=== PATIENT | female | born 2000 | race Two or more races ===

== ENCOUNTER 2024-05-20 10:22 | Inpatient (IN) | payer MEDICAID, SELFPAY ==
[2024-05-20] VITALS (13 sets, daily range): BP systolic 106–130; BP diastolic 59–83; PULSE 63–84; RESP 12–20; TEMP 36.6–37.1; O2SAT 98–100; BMI 37.8
--- NOTE | 2024-05-20 10:51 | ESHP_ITS ---
Documentation for date of: 05/20/24 OB Labor/Induct. HPI History of Present Illness History of present illness: 23-year-old at 39 weeks and 0 days gestation presents for scheduled repeat low transverse section. Estimated due date is May 27, 2024. Patient has a history of one previous section performed in [place] in November 2021. Current has been uncomplicated. records were reviewed: - Group B strep was negative on April 29, 2024 - 2-hour glucose tolerance test was abnormal on all three parameters on March 22, 2024 - NIPT was negative for trisomies with female gender on December 25, 2023 - Toxicology screening was negative on December 14, 2023 - Hemoglobin A1c was 5.4 on December 15, 2023 - Initial panel (November 30, 2023): - Blood group O-positive with antibody screen negative - HIV-negative - Gonorrhea and chlamydia-negative - Hemoglobin of 13.3 - RPR-nonreactive - Rubella-nonimmune status MFM ultrasound on April 22, 2024 showed normal anatomy survey at 33 weeks and 5 days with a mild mid-muscular VSD measuring 2.8 mm in size. Recommendation for echocardiography and follow-up with pediatric neonatology was made. Review of Systems Review of Systems Systems Reviewed: All systems reviewed, normal except as documented OB Exam Constitutional Constitutional: no acute distress Routine HEENT Exam Head: Present normocephalic and atraumatic Eye: Present EOMI and PERRL ENT: Present mucous membranes moist Routine Neck Exam Neck: Present supple and trachea midline Routine Cardiovascular Exam Cardiovascular: Present RRR Routine Abdominal Exam Abdominal: Present soft and normoactive bowel sounds Detailed Labor and Delivery Exam Baseline heart rate: 145 monitor accelerations: 15x15 monitor decelerations: None Routine Extremities Exam Extremities: Present full ROM Routine Skin Exam Skin: Present intact, dry and warm Routine Neurological Exam Neurological: Present alert, oriented X3 and CN II-XII intact Routine Psychiatric Exam Psychiatric: Present normal affect and normal thought process OB Assessment & Plan Assessment and Plan (1) Previous delivery affecting : Status: Acute Assessment and plan: Plan: - Admit for scheduled repeat low transverse section - Implement standard labor admission orders - Obtain informed consent for procedure Gestational diabetes mellitus: - Abnormal 2-hour glucose tolerance test (03/22/2024) - Hemoglobin A1c 5.4% (12/15/2023) - Continue monitoring blood glucose levels perioperatively - Manage according to standard gestational diabetes protocols during section ventricular septal defect (VSD): - MFM ultrasound (04/22/2024) showed mild mid-muscular VSD (2.8 mm) - Notify neonatology team of VSD - Schedule echocardiography - Arrange follow-up with pediatric neonatology (2) Gestational diabetes: Status: Acute
[2024-05-20 11:16] LABS: Basophils % (Auto) 0 % (0-2.5); Eosinophils # (Auto) 0.1 Thou/mm3 (0.0-0.5); Eosinophils % (Auto) 1 % (0-10); Hematocrit 31.4 % (36.0-46.0); Hemoglobin 9.8 g/dL (12.0-16.0); Immature Granulocytes % (Auto) 0 % (0-0); Immature Granulocytes Auto 0.05 Thou/mm3 (0.00-0.00); Lymphocytes # (Auto) 2.7 Thou/mm3 (1.0-4.8); Lymphocytes % (Auto) 24 % (10-50); Mean Corpuscular HGB Conc 31.2 g/dl (31.0-37.0); Mean Corpuscular Hemoglobin 22.8 pg (25.0-35.0); Mean Corpuscular Volume 73 fL (80-100); Monocytes # (Auto) 0.5 Thou/mm3 (0.0-0.8); Monocytes % (Auto) 4 % (0-12); Neutrophils # (Auto) 7.9 Thou/mm3 (1.8-7.7); Neutrophils % (Auto) 70 % (37-80); Nucleated Red Blood Cell # 0.02 Thou/mm3 (0.00-0.00); Nucleated Red Blood Cell % 0 /100 WBC (0); Platelet Count 125 Thou/mm3 (140-440); White Blood Count 11.3 Thou/mm3 (3.6-11.0)
[2024-05-20 11:49] LABS: Syphilis Nonreactive (Nonreactive)
[2024-05-20] MEDS: CITRIC ACID/SODIUM CITR 15 ML UDC (BICITRA) 30 ML PO (12:22)
[2024-05-20] MEDS: ceFAZolin/D5W 2 GM IV 2 GM/100 ML BAG IV (12:23)
[2024-05-20] MEDS: FAMOTIDINE INJ 10 MG/ML VIAL 2 ML 20 MG IV (12:23)
[2024-05-20] MEDS: RINGERS LACTATED 1000 ML 1,000 ML 100 ML IV (12:26)
[2024-05-20 13:25] LABS: Amphetamine/Metham Scrn,Ur OB Negative (Negative); Benzoylecgonine Screen, Ur OB Negative (Negative); Opiate Screen,Urine OB Negative (Negative); THC Screen,Urine OB Negative (Negative)
--- NOTE | 2024-05-20 13:45 | ESOP_ITS ---
Operative Note - APPLIQUER Procedure Date of procedure: 05/20/24 Procedure Performed: Repeat section with vertical skin and low transverse uterine incision Indication: 23-year-old G2, P1 at 39 weeks with previous in [place] Gestational diabetes with unspecified control Anesthesia type: Spinal Procedure description: Informed consent was obtained and the patient was brought to the operating room. Identity was verified with double identifiers. Under spinal anesthesia, the patient was positioned supine. The abdomen and perineum were prepped in standard sterile fashion, and a Posey catheter was placed for continuous drainage. After applying sterile drapes and confirming anesthesia adequacy, a vertical skin incision was made along the patient?s previous scar. The incision was carried through the subcutaneous tissue to expose the rectus fascia. The fascia was incised in the midline, and the rectus muscles were gently to enter the peritoneum bluntly. The peritoneal opening was then extended and an Carlos O-ring retractor was placed to optimize visualization. A low transverse Nancy Donaldson uterine incision was made in the lower uterine seg ment, carefully avoiding the bladder. Uterine entry was achieved bluntly, and the opening was extended to allow rupture of the amniotic membranes and release of clear amniotic fluid. The fetus, in vertex position, was delivered after gentle elevation of the head and release of a single nuchal cord loop, with the remainder of the body delivered via gentle fundal pressure. The umbilical cord was doubly clamped, divided, and the infant transferred to the team, with cord gas samples obtained. The placenta was delivered with gentle traction, and the uterine cavity was thoroughly cleaned of blood, debris, and membranes. The hysterotomy was closed in two layers using 1 Monocryl suture. The first layer approximated the uterine muscle in a running locked fashion, while the second layer imbricated the myometrium and serosa. Hemostasis at the hysterotomy site was confirmed. Following removal of the Carlos retractor, the peritoneal edges and rectus muscles were reapproximated. The rectus fascia was closed in a running fashion with 0 Vicryl suture. After copious irrigation of the subcutaneous tissue with warm normal saline and cauterization of bleeding points, the subcutaneous layer was closed with 3-0 Vicryl. The skin was then closed with surgical ibrahima. The patient was subsequently undraped, her abdomen and back were thoroughly cleaned, and she was transferred to the recovery room in stable and awake condition. The procedure was well tolerated without complications, and all instrument, sponge, and lap counts were correct. Estimated blood loss (ml): 650 Complications: none Surgical staff Operation Date: 05/20/24 12:45 Case Staff LITHOGRAPHIC ETCHER: Tonie Baldwin RN First Assistant: Dexter Tavarez Diagnosis Discharge Diagnosis (1) Previous delivery affecting : Status: Acute (2) Gestational diabetes: Status: Acute Problem List Completed Was Problem List Reviewed/Reconciled?: Yes
--- NOTE | 2024-05-20 13:45 | PD.LDDELS ---
Data ([facility]) Data Hx Section: No : 3 Para: 1 Term: 1 : 0 : 1 Delivery Data ([facility]) Labor Data ROM Date: 05/20/24 ROM Time: 13:17 Rupture Type: AROM Amniotic Fluid: Clear Delivery Data Labor Onset Stage 1 Date: 05/20/24 Labor Onset Stage 1 Time: 13:18 Labor Onset Stage 2 Date: 05/20/24 Labor Onset Stage 2 Time: 13:18 Delivery Date: 05/20/24 Delivery Time: 13:18 Placenta Delivery Date: 05/20/24 Placenta Delivery Time: 13:19 Delivered by: Kevin Xavier Delivery nurse: Alise Flores Other staff at delivery: Nursery Nurse Other staff at delivery: Nursery Nurse Other staff at delivery: [employer] Switchboard Operator Other staff at delivery: Raza Other staff at delivery: Bree Hernández Other staff at delivery: Natalie Leavitt Other staff at delivery: CHRISTI Other staff at delivery: JOVITA Delivery Method Delivery: Delivery Type: Repeat Anesthesia Type Primary Anesthesia: Spinal Umbilical Cord Umbilical Vessels: 3 Data ([facility]) Data Gender: Female Infant Weight Grams: 3260 1 Minute Total: 8 5 Minute Total: 10
--- NOTE | 2024-05-20 14:40 | PC.NURSE ---
UPDATE GIVEN TO DR. GARIBAY ON PATIENT STATUS DURING PACU RECOVERY AFTER . PT'S BLEEDING NOTED WITH FUNDAL MASSAGES SLOW TRICKLE. ORDERS RECEIVED TO GIVEN TXA IV X1 AND METHERGINE IM X1. PER M.D. UPDATE IN 30 MINUTES AFTER GIVING MEDICATION.
[2024-05-20] MEDS: METHYLERGONOVINE INJ 0.2 MG/ML VIAL IM (14:47)
[2024-05-20] MEDS: TRANEXAMIC ACID 1,000 MG IVPB 1,000 MG/100 ML BAG 200 MG IV (15:15)
[2024-05-20] MEDS: OXYTOCIN in NS 20 units 20 UNIT/1,000 ML BAG 125 UNIT IV (15:46)
[2024-05-20] MEDS: ACETAMINOPHEN IVPB 1,000 MG/100 ML VIAL 250 MG IV (15:51)
--- NOTE | 2024-05-20 16:15 | PC.NURSE ---
UPDATE GIVEN TO DR. GARIBAY, PT BLEEDING STOPPED AFTER GIVING METHERGINE AND TXA. NO TRICKLE NOTED.
[2024-05-20 17:26] LABS: Band Neutrophils (Manual) 4 % (0-6); Eosinophils (Manual) 1 % (0-4); Lymphocytes (Manual) 26 % (20-44); Metamyelocytes (Manual) 1 % (0-0); Monocytes (Manual) 3 % (2-9); Myelocytes (Manual) 1 % (0-0); Neutrophils (Manual) 64 % (50-70)
[2024-05-21] VITALS: BP 113/71; PULSE 70; RESP 18; TEMP 37.1; O2SAT 98
[2024-05-21] MEDS: OXYTOCIN in NS 20 units 20 UNIT/1,000 ML BAG 125 UNIT IV (01:08)
[2024-05-21] MEDS: ACETAMINOPHEN IVPB 1,000 MG/100 ML VIAL 250 MG IV (01:10)
[2024-05-21 04:00] VITALS: BP 115/74; PULSE 69; RESP 18; TEMP 36.9; O2SAT 100
[2024-05-21] MEDS: KETOROLAC INJ 30 MG/ML VIAL IVP (04:29)
[2024-05-21] MEDS: DiphenhydrAMINE INJ 50 MG/ML VIAL 25 MG IVP (04:30)
[2024-05-21 06:09] LABS: Basophils % (Auto) 0 % (0-2.5); Eosinophils % (Auto) 0 % (0-10); Hematocrit 27.6 % (36.0-46.0); Immature Granulocytes % (Auto) 0 % (0-0); Immature Granulocytes Auto 0.05 Thou/mm3 (0.00-0.00); Lymphocytes # (Auto) 2.9 Thou/mm3 (1.0-4.8); Lymphocytes % (Auto) 19 % (10-50); Mean Corpuscular HGB Conc 31.9 g/dl (31.0-37.0); Mean Corpuscular Hemoglobin 22.9 pg (25.0-35.0); Mean Corpuscular Volume 72 fL (80-100); Monocytes % (Auto) 7 % (0-12); Neutrophils # (Auto) 11.1 Thou/mm3 (1.8-7.7); Neutrophils % (Auto) 74 % (37-80); Nucleated Red Blood Cell % 0 /100 WBC (0); Platelet Count 82 Thou/mm3 (140-440); RDW Standard Deviation 40.6 fL (36.4-46.3); Red Blood Count 3.85 Miln/mm3 (4.00-5.20); White Blood Count 15.1 Thou/mm3 (3.6-11.0)
[2024-05-21 06:11] LABS: Hemoglobin 8.8 g/dL (12.0-16.0)
[2024-05-21 08:00] VITALS: BP 109/61; PULSE 79; RESP 17; TEMP 36.7; O2SAT 98
--- NOTE | 2024-05-21 08:39 | ESPR_ITS ---
Subjective Subjective Interval history: 23-year-old s/p repeat low-transverse , postop day 1 has been doing well. Denies any headache, blurred vision, chest pain, shortness of breath. Has been tolerating diet without nausea vomiting. Denies any fever or vaginal bleeding Exam Vital Signs Temp Pulse Resp BP Pulse Ox O2 Del Method 98.5 F 69 18 115/74 100 Room Air 05/21/24 04:00 05/21/24 04:00 05/21/24 04:00 05/21/24 04:00 05/21/24 04:00 05/21/24 04:00 Constitutional Constitutional: no acute distress Routine HEENT Exam Head: Present normocephalic and atraumatic Eye: Present EOMI and PERRL ENT: Present mucous membranes moist Routine Neck Exam Neck: Present supple and trachea midline Routine Respiratory Exam Respiratory: Present chest non-tender, lungs clear, normal breath sounds and no resp distress Routine Cardiovascular Exam Cardiovascular: Present RRR Routine Abdominal Exam Abdominal: Present soft and normoactive bowel sounds Routine Extremities Exam Extremities: Present full ROM Routine Skin Exam Skin: Present intact, dry and warm Routine Neurological Exam Neurological: Present alert, oriented X3 and CN II-XII intact Routine Psychiatric Exam Psychiatric: Present normal affect and normal thought process Objective Labs 05/21/24 05:55 Labs: Laboratory Results - last 24 hr 05/20/24 05/20/24 05/21/24 10:55 12:05 05:55 WBC 11.3 H 15.1 H RBC 4.30 3.85 L Hgb 9.8 L 8.8 L Hct 31.4 L 27.6 L MCV 73 L 72 L MCH 22.8 L 22.9 L MCHC 31.2 31.9 RDW Std Deviation 42.0 40.6 Plt Count 125 L 82 L D Neut % (Auto) 70 74 Lymph % (Auto) 24 19 Ferry % (Auto) 4 7 Eos % (Auto) 1 0 Baso % (Auto) 0 0 Neut # (Auto) 7.9 H 11.1 H Lymph # (Auto) 2.7 2.9 Ferry # (Auto) 0.5 1.0 H Eos # (Auto) 0.1 0.0 Baso # (Auto) 0.0 0.0 Immature Gran # (Auto) 0.05 H 0.05 H Absolute Nucleated RBC 0.02 H 0.00 Immature Gran % 0 0 Neutrophils % (Manual) 64 Monocytes % (Manual) 3 Eosinophils % (Manual) 1 Metamyelocytes % 1 H Myelocytes % 1 H Nucleated RBC % 0 0 Band Neutrophils 4 Lymphocytes (Manual) 26 Urine Opiates Screen Negative U Amphetamin/Meth Scrn Negative U Cocaine Metab Screen Negative U Marijuana (THC) Screen Negative Syphilis Serology Nonreactive Blood Type O Positive Antibody Screen NEGATIVE Blood Bank Wristband ID Yes Assessment & Plan Problem List (1) Previous delivery affecting : Status: Acute (2) Gestational diabetes: Status: Acute Assessment Comment Assessment comment: 23-year-old s/p repeat low-transverse postop day 1 Vital signs stable Hemoglobin 8.8 today appropriate drop Meeting appropriate milestones Plan Comment Plan Comment: Continue postop care Anticipate discharge tomorrow Time Spent With Patient Time: Total time spent is greater than 50% in coordination of care (as documented) at patient's floor/unit and/or counseling patient:
[2024-05-21] MEDS: DOCUSATE SOD 100 MG CAPSULE PO (08:58)
[2024-05-21] MEDS: Milk Of Magnesia Susp 30 ML UDC PO ×2 (08:58→23:54)
[2024-05-21] MEDS: SIMETHICONE 80 MG CHEW PO ×2 (08:58→12:48)
--- NOTE | 2024-05-21 11:26 | PC.CM ---
Patient is a 23-year-old, female, present to for delivery of baby girl. ASW, Zuleika, met with patient [id number] to do initial assessment due being late to care at 17 weeks. ASW introduced herself, role in the agency, reason for visit, and discussed limits of confidentiality. Patient appeared alert and oriented to self, time, place, and situation. Patient made good eye contact. At bedside was /father of baby Miles Esparza whom patient provided consent to remain in the room during the assessment. Patient was cooperative. Patient?s behavior appeared ordinary. No signs of delusions or hallucinations. Patient reports she works in the [employer] and was traveling from [place] to [place] for work. Patient stated she took a test while in [place] and then a week later came to [place] where she received consistent medical care. Father of Baby (FOB) is involved and is part of the mother's support system. Patient denied domestic violence. Other support system is her brother and FOB sisters. Patient reports this is her second child she has a 2 year-old son that is currently living in [place] with the paternal grandparents. Patient reports she has all the supplies she needs for her . Patient is receiving WIC, but plans to breast feed for as long as she can before returning to work. ASW provided psychoeducation regarding baby blues and Post- Depression, as well as counseling groups at [facility] and [facility]. SW provided community resources: Warm Line and Crisis Line. ASW provided an update to bedside [employer].
[2024-05-21 12:00] VITALS: BP 100/64; PULSE 87; RESP 16; TEMP 36.7; O2SAT 98
[2024-05-21] MEDS: HYDROcodone/APAP 5/325 TABLET 1 TAB PO ×2 (12:45→23:42)
[2024-05-21 16:00] VITALS: BP 111/74; PULSE 77; RESP 18; TEMP 36.8; O2SAT 98
[2024-05-21] MEDS: IBUPROFEN TAB 400 MG TABLET 800 MG PO (19:40)
[2024-05-21 19:58] VITALS: BP 102/64; PULSE 76; RESP 17; TEMP 36.9; O2SAT 97
[2024-05-22 04:09] VITALS: BP 105/68; PULSE 82; RESP 16; TEMP 36.8; O2SAT 97
[2024-05-22] MEDS: Milk Of Magnesia Susp 30 ML UDC PO (07:01)
[2024-05-22] MEDS: SIMETHICONE 80 MG CHEW PO (07:01)
--- NOTE | 2024-05-22 07:53 | ESDS_ITS ---
DS: Providers Provider Date of admission: 05/20/24 10:22 Primary care physician: Physician No Primary/Family Admitting Provider: Kevin Xavier MD Attending Provider on Admission: Shivam Welsh MD Consults: 05/20/24 14:37 Referral Routine Comment: Attending Provider on DC: Shivam Welsh MD Discharging Provider: Shivam Welsh MD DS: Diagnosis Problem List Completed Was Problem List Reviewed/Reconciled?: Yes Summary/Hosp Course Brief History: 23-year-old , status post repeat low-transverse at 39 weeks and 0 days has been doing well. Denies any fever, nausea vomiting. Has been tolerating diet has been passing gas Peripartum Data Procedures: Procedures Operation Date: 05/20/24 12:45 Actual Procedure Side Surgeon p in OB Not Applicable Kevin Xavier MD Status at Discharge Cognitive/behavioral status at discharge: Stable Time Spent with Patient Time attestation: Total time spent providing and/or coordinating discharge services: Exam Vital Signs Temp Pulse Resp BP Pulse Ox O2 Del Method 98.3 F 82 16 105/68 97 Room Air 05/22/24 04:09 05/22/24 04:09 05/22/24 04:09 05/22/24 04:09 05/22/24 04:09 05/22/24 04:09 Constitutional Constitutional: no acute distress Routine HEENT Exam Head: Present normocephalic and atraumatic Eye: Present EOMI and PERRL ENT: Present mucous membranes moist Routine Neck Exam Neck: Present supple and trachea midline Routine Respiratory Exam Respiratory: Present chest non-tender, lungs clear, normal breath sounds and no resp distress Routine Cardiovascular Exam Cardiovascular: Present RRR Routine Abdominal Exam Abdominal: Present soft and normoactive bowel sounds Routine Extremities Exam Extremities: Present full ROM Routine Skin Exam Skin: Present intact, dry and warm Routine Neurological Exam Neurological: Present alert, oriented X3 and CN II-XII intact Routine Psychiatric Exam Psychiatric: Present normal affect and normal thought process Discharge Plan Plan Patient Disposition: HOME (Self Care) Patient condition on transfer: Stable Prescriptions/Referrals Prescriptions/Med Rec: New ibuprofen 800 mg tablet 800 mg PO Q8H PRN (Reason: pain) Qty: 30 0RF hydrocodone-acetaminophen 5-325 mg Tablet 1 tab PO Q6H MDD 4 PRN (Reason: Patient rated pain 7 to 8) 5 Days Qty: 20 0RF docusate sodium 100 mg Capsule 100 mg PO QDAY 30 Days Qty: 30 0RF Referrals: Shivam Welsh MD [Physician] - No Primary/Family,Physician [Primary Care Provider] - Patient/Caregiver Discharge Instructions Meds to Beds: Yes Education Materials: C Section Dc Print Language: Belarusian Stand Alone Forms: [facility] Award Info., Patient Portal Info Letter, DC from Surgery Discharge Order Discharge Orders: Discharge (Routine); Ordered 05/22/24 Ordered By: Shivam Welsh Planned Discharge Date 05/22/24
[2024-05-22 08:10] VITALS: BP 105/67; PULSE 79; RESP 18; TEMP 36.8; O2SAT 100
[2024-05-22] MEDS: DOCUSATE SOD 100 MG CAPSULE PO (08:23)
--- NOTE | 2024-05-22 09:00 | PC.NURSE ---
Dr. Welsh made aware of platelet count, no new orders
[2024-05-22] MEDS: HYDROcodone/APAP 5/325 TABLET 1 TAB PO (10:04)
== END 2024-05-22 15:33 | disposition home or self-care (01) | DRG 540 ==
LOC: S4SX 12:37 → S4NX 13:24
PROVIDERS: Admitting Provider Obstetrics & Gynecology; Visit Provider Student in an Organized Health Care Education/Training Program
PROC: 10D00Z1 Extraction of Products of Conception, Low, Open Approach (ICD-10-PCS; CPT 59514; principal; 2024-05-20 12:30)
DX: O34.211 Maternal care for low transverse scar from previous cesarean delivery (principal); Z3A.39 39 weeks gestation of pregnancy; Z37.0 Single live birth; O69.81X0 Labor and delivery complicated by cord around neck, without compression, not applicable or unspecified; O24.429 Gestational diabetes mellitus in childbirth, unspecified control; O35.BXX0 Maternal care for other (suspected) fetal abnormality and damage, fetal cardiac anomalies, not applicable or unspecified
CPT/HCPCS: 36415; 59409; 80307; 85025; 86780; 86850; 86900; 86901; 94762; A4649; J0131; J0689; J1100; J1200; J1885; J2210; J2270; J2274; J2371; J2405; J2590; J3010; J3490; J7120; A9270